=== PATIENT | male | born 1940 | race Caucasian/White ===

== ENCOUNTER 2018-10-02 02:02 | Outpatient (CLI) | payer MEDICARE ==
[2018-10-02 12:15] LABS: Mean Corpuscular HGB CONC 32.8 g/dL (32.0-36.0); Mean Corpuscular Hemoglobin 30.8 pg (27.0-31.0); Mean Corpuscular Volume 93.9 fL (78.0-98.0); Platelet Count 202 thou/uL (130-400); RBC Distribution Width 14.7 % (11.5-14.5); Red Blood Cell (RBC) Count 4.86 mill/uL (4.70-6.10); White Blood Cell (WBC) Count 6.9 thou/uL (4.8-10.8)
[2018-10-02 12:34] LABS: PTT 26.1 SEC (22.9-36.1); Prothrombin Time 13.6 SEC (12.0-14.7)
[2018-10-02 12:38] LABS: Anion Gap 10 mmol/L (10-20); BUN (Urea Nitrogen) 11 mg/dL (8.4-25.7); Calc. Creatinine Clearance 0 mL/min (70-130); Calcium 9.1 mg/dL (7.8-10.44); Carbon Dioxide 24 mmol/L (23-31); Chloride 107 mmol/L (98-107); Estimated GFR-MDRD 88; Glucose 95 mg/dL (83-110); Potassium 4.3 mmol/L (3.5-5.1); Sodium 137 mmol/L (136-145)
== END 2018-10-02 02:03 | disposition home or self-care (01) ==
LOC: LABBT 02:02
PROVIDERS: ATTEND Surgery
DX: Z01.818 Encounter for other preprocedural examination (principal); M48.061 Spinal stenosis, lumbar region without neurogenic claudication; M54.16 Radiculopathy, lumbar region
CPT/HCPCS: 80048; 85027; 85610; 85730; 93005; 93010

== ENCOUNTER 2018-10-08 09:16 | Day surgery (SDC) | payer MEDICARE ==
[2018-10-08] MEDS ORDERED: Thrombin 5000 UNITS/5 ML VIAL ONE (14:03)
[2018-10-08] MEDS ORDERED: Sodium Chloride 0.9% 10 ML ONE (14:03)
[2018-10-08] MEDS ORDERED: Bacitracin Zinc Ointment 30 gm TUBE ONE (14:03)
[2018-10-08] MEDS ORDERED: Dexamethasone 20 MG/5 ML VIAL ONE (14:43)
[2018-10-08] MEDS ORDERED: Ondansetron PF 4 MG/2 ML Vial ONE (14:43)
[2018-10-08] MEDS ORDERED: PROPOFOL 200 MG/20 ML VIAL ONE (14:43)
[2018-10-08] MEDS ORDERED: ePHEDrine 50 MG/ML VIAL ONE (14:43)
[2018-10-08] MEDS ORDERED: Lidocaine 1% PF 5 ML VIAL ONE (14:43)
[2018-10-08] MEDS ORDERED: Rocuronium Bromide 10 MG/ML (10ML VIAL) ONE (14:43)
[2018-10-08] MEDS ORDERED: PHENYLEPHRINE-NS 100 MCG/ML 10 ML SYRINGE ONE (14:43)
[2018-10-08] MEDS ORDERED: Glycopyrrolate 0.2 MG/ML 5 ML SYRINGE ONE (14:43)
[2018-10-08] MEDS ORDERED: Fentanyl 250 MCG/5 ML VIAL ONE (15:15)
[2018-10-08] MEDS ORDERED: Albumin 25% 0 ML ONE (16:21)
[2018-10-08] MEDS ORDERED: Albumin 5% 500 ML ONE (16:22)
[2018-10-08] MEDS ORDERED: Phenylephrine HCL 10 MG/ML VIAL ONE (16:46)
[2018-10-08] MEDS ORDERED: Albumin 25% 100 ML ONE (17:06)
[2018-10-08] MEDS ORDERED: Ondansetron HCl/PF 4 MG/2 ML Vial IVP PRN (19:24)
[2018-10-08] MEDS ORDERED: Milk Of Magnesia 30 ML UDCUP PO PRN (19:30)
[2018-10-08] MEDS ORDERED: Acetaminophen/Codeine 30-300mg Tablet PO PRN (19:30)
[2018-10-08] MEDS ORDERED: Fleet Enema 133 ML BOT PR PRN (19:30)
[2018-10-08] MEDS ORDERED: HYDROcodone/Acetaminophen 7.5/325 mg Tablet PO PRN (19:30)
[2018-10-08] MEDS ORDERED: Bisacodyl 10 MG SUPP PR PRN (19:30)
[2018-10-08] MEDS ORDERED: Mag-Al 1200 mg/1200 mg/30 ML UDCUP PO PRN (19:30)
[2018-10-08] MEDS ORDERED: Morphine 2 MG/ML SYRINGE SLOW IVP PRN (19:30)
[2018-10-08] MEDS: Atorvastatin Calcium 20 MG TAB PO SCH (22:19)
[2018-10-08] MEDS: traMADol HCl 50 MG TAB PO PRN (22:22)
[2018-10-08 22:52] VITALS: BMI 34.6
[2018-10-09] MEDS: Sodium Chloride 0.9% 1,000 ML IV SCH ×3 (00:49→23:45)
[2018-10-09] MEDS: Cepastat Lozenges 1 LOZ PO PRN ×2 (02:00→03:05)
[2018-10-09] MEDS: Acetaminophen 325 MG TAB PO PRN ×3 (04:10→22:48)
[2018-10-09] MEDS: traMADol HCl 50 MG TAB PO PRN ×2 (04:10→22:48)
[2018-10-09] MEDS: Dronedarone HCl 400 MG TAB PO SCH ×2 (08:36→17:35)
[2018-10-09] MEDS: Tamsulosin HCl 0.4 MG CAP PO SCH (08:36)
[2018-10-09] MEDS: Finasteride 5 MG TAB PO SCH (08:37)
--- NOTE | 2018-10-09 09:47 | PRG ---
DATE OF SERVICE: 10/09/2018 DICTATING FOR: Abhilash Scott MD SUBJECTIVE: Mr. Tamayo is now postoperative day #1, having undergone multilevel lumbar laminectomies. The patient overall states he is doing very well. He has no leg pain. Complains a very minimal low back pain. He states he had difficulty sleeping last night, but overall is very pleased with his outcome postoperatively. He has been up walking the halls, urinated, and is keeping some food down. He is only taking tramadol for pain. Again, he has good strength in the bilateral lower extremities with intact sensation to light touch. He has minimal help at home and does live at [facility] in [place]. I have put in a Rehab consult for inpatient rehab versus [facility]. We will await decisions from Case Management and inpatient rehab representatives. Otherwise, I will check back on the patient in the morning, but he is doing well postoperatively. Job ID: [id number]
--- NOTE | 2018-10-09 09:52 | OP ---
DATE OF PROCEDURE: 10/08/2018 OPERATING ROOM: OR 12. WOUND CLASSIFICATION: Type 1 wound. MODEL MAKER APPRENTICE: Diego Chase PA-C. 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 PROCEDURES PERFORMED: 1. L1-L2 and L2-L3 laminectomies. 2. Left L2-L3 diskectomy. 3. Bilateral revision hemilaminotomy, foraminotomies L3-L4, L4-L5, and L5-S1 (modifier 50 should be added as this was bilateral). DESCRIPTION OF PROCEDURE: After informed consent was obtained, the patient was brought to the OR and placed under anesthesia and positioned prone. All appropriate points were padded. We identified the prior lumbar wound. This region was sterilely cleansed, prepared, and draped. Proper patient, pause, and identification were carried out. The wound was then opened with a combination of sharp, monopolar, and blunt dissection, and we proceeded to expose the L1, L2, L3, L4, L5, and S1 dorsal spines and lamina. There was significant scar tissue from L3-S1 as expected. Localization film confirmed our area of interest. We then performed L1-L2 and L2-L3 laminectomies, partial facetectomies, foraminotomies, and left L2-L3 diskectomy. We then proceeded to perform bilateral revision hemilaminotomy and foraminotomies at L3-L4, L4-L5, and L5-S1 and achieved excellent decompression of the common dural tube from L1-S1 along with all of the accompanying nerve roots. Hemostasis was maximized throughout. The wound was copiously irrigated and then closed in anatomic layers following sprinkling of vancomycin powder. The patient then emerged from anesthesia. Job ID: [id number]
[2018-10-09] MEDS: Atorvastatin Calcium 20 MG TAB PO SCH (21:08)
[2018-10-10] MEDS: Tamsulosin HCl 0.4 MG CAP PO SCH (07:48)
[2018-10-10] MEDS: Acetaminophen 325 MG TAB PO PRN (07:48)
[2018-10-10] MEDS: Finasteride 5 MG TAB PO SCH (07:48)
[2018-10-10] MEDS: Dronedarone HCl 400 MG TAB PO SCH (07:48)
[2018-10-10] MEDS: traMADol HCl 50 MG TAB PO PRN (07:54)
--- NOTE | 2018-10-10 10:21 | PRG ---
DATE OF SERVICE: 10/10/2018 SUBJECTIVE: Mr. Tamayo is postoperative day #2 following L1-S1 decompression. 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 He is ambulating. He does feel as if he would benefit from some sort of transitional care for disposition such as [place] as such we will make arrangements in that regard. Job ID: [id number]
[2018-10-10 11:46] VITALS: BP 121/81; TEMP 98.3
== END 2018-10-10 12:20 | disposition home health service (06) ==
LOC: SDC 09:16 → SURG A 19:30 → SDC 10-10 12:20
PROVIDERS: ATTEND Surgery
PROC: 01NB0ZZ Release Lumbar Nerve, Open Approach (ICD-10-PCS; principal; 2018-10-08)
PROC: 01NB0ZZ Release Lumbar Nerve, Open Approach (ICD-10-PCS; 2018-10-08)
DX: M48.061 Spinal stenosis, lumbar region without neurogenic claudication (principal); I25.10 Atherosclerotic heart disease of native coronary artery without angina pectoris; I10 Essential (primary) hypertension; I48.0 Paroxysmal atrial fibrillation; M19.90 Unspecified osteoarthritis, unspecified site; Z86.718 Personal history of other venous thrombosis and embolism; Z79.01 Long term (current) use of anticoagulants; Z79.82 Long term (current) use of aspirin; Z79.899 Other long term (current) drug therapy; Z98.890 Other specified postprocedural states
CPT/HCPCS: 63042; 63044 ×2; 63047; 63048; 76000; 97116 ×2; 97139 ×3; 97530 ×2; 97535; P9045; P9047; J1100; J2001; J2370; J2405; J2704; J3010; J3370; J3490